=== PATIENT | female | born 1940 | race Caucasian/White ===

== ENCOUNTER 2019-12-12 17:43 | Outpatient (CLI) | payer MEDICARE, SELFPAY ==
--- NOTE | ~2019-12-12 | CT_ITS ---
EXAMINATION: CT chest w con DATE: 12/12/2019 18:27 INDICATION: Pneumonia TECHNIQUE: Computed tomography (CT) of the chest was performed with 75 cc Omnipaque 350 intravenous c ontrast. The dose-length product was 209.09 mGy-cm. Automated exposure control and iterative reconstr uction technique were employed. COMPARISON: Chest x-ray dated 11/21/2019 FINDINGS: Heart size is normal. No significant pleural or pericardial effusion. Moderate size hiatal hernia. No thoracic lymphadenopathy. No evidence for aortic aneurysm or dissection. There is dependen t atelectasis. There is an accessory azygos lobe, normal variant. There is a subsolid 8 mm right lowe r lobe nodule. No endobronchial lesions. No pneumothorax. IMPRESSION: 1. Bibasilar dependent atelectasis. 2: 8 mm some solid nodule right lower lobe, likely benign. Recommend follow-up low dose CT in 6 ni hs to assess for stability. 3: Moderate sized hiatal hernia. Reviewed, dictated and finalized at location A. RAL SUPPLY ASSISTANT IMPRESSION: 1. Bibasilar dependent atelectasis. 2: 8 mm some solid nodule right lower lobe, likely benign. Recommend follow-up low dose CT in 6 months to assess for stability. 3: Moderate sized hiatal hernia.
[2019-12-12 18:23] LABS: Blood Urea Nitrogen 20 mg/dL (8-26); Estimated Glomerular Filt Rate 48
== END 2019-12-12 17:44 | disposition home or self-care (01) ==
PROVIDERS: PCP Family Medicine; Visit Provider Nurse Practitioner Family
DX: R06.09 Other forms of dyspnea (principal); J18.9 Pneumonia, unspecified organism; J98.11 Atelectasis; K44.9 Diaphragmatic hernia without obstruction or gangrene
CPT/HCPCS: 71260; Q9967

== ENCOUNTER 2019-12-27 07:44 | Outpatient (CLI) | payer MEDICARE, SELFPAY ==
--- NOTE | 2019-12-27 08:06 | ECHO_ITS ---
Patient Info Name: Debi Roberts Age: 79 years : 1940 Gender: Female Ht: 65 in Wt: 210 lbs BSA: 2.13 m2 HR: 85 bpm BP: 153 / 88 mmHg Technical Quality: Good Exam Date: 12/27/2019 8:11 AM Exam Location: [facility] Pulmonary Patient Status: Outpatient Admit Date: 12/27/2019 Staff Ordering Physician: Raffaele Lang DO Pig Machine Crane Operator: [place] Steward RDCS Attending Provider: Raffaele Lang DO Referring Physician: Rickey LAINEZ; Exam Type: CA echo doppler color flow Study Info Indications R07.89 - Other chest pain Complete two-dimensional, color flow and Doppler transthoracic echocardiogram is performed. Summary 1. Left ventricular chamber dimension is normal. 2. Left ventricular systolic function is normal, estimated at 55-60%. 3. The left ventricular diastolic function is grade I diastolic dysfunction. 4. E/e' 23 is significantly elevated. 5. Left atrial chamber dimension is mildly enlarged. 6. There is mild aortic valve sclerosis. 7. There is trace tricuspid valve regurgitation. 8. No pulmonary hypertension, estimated pulmonary arterial systolic pressure is 26 mmHg. 9. There is trace pulmonic regurgitation. 10. The aortic root size at the sinus of Valsalva is borderline dilated at 4.0 cm. Left Ventricle E/e' 23 is significantly elevated. Left ventricular chamber dimension is normal. Left ventricular systolic function is normal, estimated at 55-60%. The left ventricular diastolic function is grade I diastolic dysfunction. Right Ventricle Right ventricular chamber dimension is normal. Right ventricular systolic function is normal. Left Atria Left atrial chamber dimension is mildly enlarged. Right Atria Right atrial chamber dimension is normal. Aortic Valve The aortic valve is trileaflet. There is mild aortic valve sclerosis. There is no aortic valve stenosis. There is no aortic valve regurgitation. Pulmonic Valve There is trace pulmonic regurgitation. Mitral Valve There is no mitral valve stenosis. There is no mitral valve regurgitation. Tricuspid Valve There is trace tricuspid valve regurgitation. No pulmonary hypertension, estimated pulmonary arterial systolic pressure is 26 mmHg. Pericardium/Pleural There is no pericardial effusion. Inferior Vena Cava Normal inferior vena cava with >50% collapse upon inspiration consistent with normal right atrial pressure, 5 mmHg. Aorta The aortic root size at the sinus of Valsalva is borderline dilated at 4.0 cm. Left Ventricular Outflow Tract Name Value Normal LVOT 2D LVOT Diameter 1.9 cm LVOT Doppler LVOT Peak Velocity 102 cm/s LVOT Peak Gradient 4 mmHg LVOT Mean Gradient 2 mmHg LVOT VTI 22 cm LVOT VTI/AV VTI Ratio 0.7 LVOT Stroke Volume 63 ml LVOT CO 10.7 l/min LVOT CI 5.0 l/min/m2 Pulmonic Valve Na
--- NOTE | 2019-12-27 08:06 | EST_ITS ---
Patient Info Name: Debi Roberts Age: 79 years : 1940 Gender: Female Ht: 65 in Wt: 210 lbs BSA: 2.13 m2 Exam Date: 12/27/2019 9:25 AM Exam Location: [facility] Stress Patient Status: Outpatient Admit Date: 12/27/2019 Staff Ordering Physician: Raffaele Lang DO Attending Provider: Raffaele Lang DO Exercise Technologist: Marcial Wu RDCS, RT Exercise Physician: Raffaele Lang DO Exam Type: CA stress test treadmill Study Info A treadmill exercise stress test was performed. Summary 1. 1. Negative Darci exercise stress test for ischemic ST changes by ECG criteria. 2. 2. Poor functional capacity, achieving 4 METs of workload. 3. 3. Baseline hypertension. 4. 4. Rapid HR response to exercise. 5. 5. Appropriate HR recovery at 1 minute post exercise. 6. 6. No imaging with stress testing. 7. 7. Patient informed of the above results. Protocol: Darci Stress ECG Details Stage: REST Duration (min): 1 min : 53 sec Speed (mph): 0.0 Grade (%): 0 HR (bpm): 76 SBP (mmHg): 144 DBP (mmHg): 95 METS: --- Stage: REST Duration (min): 4 min : 29 sec Speed (mph): 0.0 Grade (%): 0 HR (bpm): 77 SBP (mmHg): 144 DBP (mmHg): 95 METS: --- Stage: STAGE 1 Duration (min): 1 min : 0 sec Speed (mph): 1.7 Grade (%): 10 HR (bpm): 118 SBP (mmHg): 144 DBP (mmHg): 95 METS: --- Stage: STAGE 1 Duration (min): 2 min : 0 sec Speed (mph): 1.7 Grade (%): 10 HR (bpm): 144 SBP (mmHg): 144 DBP (mmHg): 95 METS: --- Stage: STAGE 1 Duration (min): 2 min : 0 sec Speed (mph): 1.7 Grade (%): 10 HR (bpm): 145 SBP (mmHg): 144 DBP (mmHg): 95 METS: --- Stage: RECOVERY Duration (min): 0 min : 59 sec Speed (mph): 0.0 Grade (%): 0 HR (bpm): 121 SBP (mmHg): 185 DBP (mmHg): 106 METS: --- Stage: RECOVERY Duration (min): 1 min : 59 sec Speed (mph): 0.0 Grade (%): 0 HR (bpm): 97 SBP (mmHg): 185 DBP (mmHg): 106 METS: --- Stage: RECOVERY Duration (min): 2 min : 59 sec Speed (mph): 0.0 Grade (%): 0 HR (bpm): 87 SBP (mmHg): 197 DBP (mmHg): 107 METS: --- Stage: RECOVERY Duration (min): 3 min : 59 sec Speed (mph): 0.0 Grade (%): 0 HR (bpm): 80 SBP (mmHg): 197 DBP (mmHg): 107 METS: --- Stage: RECOVERY Duration (min): 4 min : 59 sec Speed (mph): 0.0 Grade (%): 0 HR (bpm): 84 SBP (mmHg): 169 DBP (mmHg): 99 METS: --- Stage: RECOVERY Duration (min): 5 min : 59 sec Speed (mph): 0.0 Grade (%): 0 HR (bpm): --- SBP (mmHg): 169 DBP (mmHg): 99 METS: --- Stage: RECOVERY Duration (min): 6 min : 59 sec Speed (mph): 0.0 Grade (%): 0 HR (bpm): --- SBP (mmHg): 169 DBP (mmHg): 99 METS: --- Stage: RECOVERY Duration (min): 7 min : 2 sec Speed (mph): 0.0 Grade (%
== END 2019-12-27 07:45 | disposition home or self-care (01) ==
PROVIDERS: PCP Family Medicine; Visit Provider Internal Medicine Cardiovascular Disease
DX: R07.9 Chest pain, unspecified (principal); R06.09 Other forms of dyspnea; I51.7 Cardiomegaly; I35.8 Other nonrheumatic aortic valve disorders
CPT/HCPCS: 93017; 93306

== ENCOUNTER → 2021-05-14 13:07 | Outpatient (CLI) | payer MEDICARE, SELFPAY ==
--- NOTE | ~2021-05-14 | CT_ITS ---
EXAMINATION: CT diagnostic chest wo con DATE: 05/14/2021 13:42 INDICATION: Lung nodule TECHNIQUE: Computed tomography (CT) of the chest was performed without intravenous contrast. The dose -length product (DLP) was 95.45 mGy-cm. Automated exposure control and iterative reconstruction techn ique were employed. COMPARISON: 12/12/2019 FINDINGS: The previously described right lower lobe nodule is slightly decreased in size since prior examination. There are chronic groundglass opacities in the posterior lateral aspect of the right upp er lobe which demonstrates slight increase in size since the comparison examination. No definite valentina d component is identified. There is no pleural effusion or pneumothorax. No pathologically enlarged t horacic lymph nodes are identified. The heart size is normal. There is moderate thoracic spondylosis. IMPRESSION: 1. Groundglass opacities of the right upper lobe with overall slight increase in size but decrease in size of the previously described nodular component likely reflecting chronic infection/inflammation versus scarring. Follow-up low-dose chest CT in one year is recommended. Reviewed, dictated and finalized at location B. IMPRESSION: 1. Groundglass opacities of the right upper lobe with overall slight increase i n size but decrease in size of the previously described nodular component likel y reflecting chronic infection/inflammation versus scarring. Follow-up low-dose chest CT in one year is recommended.
--- NOTE | ~2021-05-14 | DEXA_ITS ---
Bone Density Report Name: Debi Roberts Age: 81 Sex: Female Ethnicity: White Date of : 1940 Indication: postmenopausal osteoporosis; height loss; hysterectomy; Referring Provider: Tameka Bee Study: Bone densitometry was performed. Exam Date: May 14, 2021 Accession number: [id number] Bone Density: Region BMD T-score Z-score Classification AP Spine (L1-L4) 1.125 0.7 3.4 Normal Femoral Neck (Left) 0.572 -2.5 -0.2 Osteoporosis Total Hip (Left) 0.657 -2.3 -0.3 Osteopenia Femoral Neck (Right) 0.605 -2.2 0.1 Osteopenia Total Hip (Right) 0.670 -2.2 -0.2 Osteopenia Total Hip Mean 0.664 -2.3 -0.3 Osteopenia World Health Organization criteria for BMD impression classify patients as: Normal (T-score at or above -1.0), Osteopenia (T-score between -1.0 and -2.5), or Osteoporosis (T-score at or below -2.5). 10-year Fracture Risk: FRAX not reported because: Some T-score for Spine Total or Hip Total or Femoral Neck at or below -2.5 Previous Exams: Region Exam Age BMD T-score BMD Change BMD Change Date g/cm2 vs Baseline vs Previous AP Spine(L1-L4) 05/14/2021 81 1.125 0.7 0.070 0.070 07/12/2017 77 1.055 0.1 Total Hip(Left) 05/14/2021 81 0.657 -2.3 -0.002 -0.002 07/12/2017 77 0.659 -2.3 Total Hip(Right) 05/14/2021 81 0.670 -2.2 0.031 0.031 07/12/2017 77 0.639 -2.5 *Denotes significance at 95% confidence level, LSC for AP Spine = 0.022 g/cm2, LSC for Total Hip = 0.027 g/cm2 Clinical Information Provided by Patient: Has the following medical conditions: Hysterectomy, asthma in the past Patient maximum height was 65 Menopause Age: 52 Does not regularly consume dairy products Drinks caffeinated beverages Onset of menses at age 14 Number of children 4 Impression: The patient has osteoporosis, based on the Left Femoral Neck T-score. No significant bone loss was observed. Discussion: INCREASED RISK OF FRACTURE. BONE DENSITY IS UNDESIRABLY LOW AT ONE OR MORE SKELETAL SITES, CONSISTENT WITH POSTMENOPAUSAL OSTEOPOROSIS. This patient's lowest T-score meets the World Health Organization's (WHO) criteria for osteoporosis at one or more sites (T-score -2.5 or below). In untreated patients, the risk of osteoporotic fracture increases approximately two-fold for each 1.0 SD decrease in T-score. Low bone density is not the only risk factor for fracture; also consider factors such
== END ==
PROVIDERS: PCP Family Medicine; Visit Provider Physician Assistant
DX: R91.1 Solitary pulmonary nodule (principal); Z78.0 Asymptomatic menopausal state; M81.0 Age-related osteoporosis without current pathological fracture; M85.851 Other specified disorders of bone density and structure, right thigh; M85.852 Other specified disorders of bone density and structure, left thigh
CPT/HCPCS: 71250; 77080

== ENCOUNTER → 2022-05-27 11:32 | Outpatient (CLI) | payer MEDICARE, SELFPAY ==
--- NOTE | ~2022-05-27 | CT_ITS ---
EXAMINATION: CT diagnostic chest wo con DATE: 05/27/2022 11:47 INDICATION: Solitary pulmonary nodule TECHNIQUE: Computed tomography (CT) of the chest was performed without intravenous contrast. Automate d exposure control and iterative reconstruction technique were employed. Exam dose: 94.80 mGy-cm tot al exam DLP. COMPARISON: 05/14/2021 CT chest 12/12/2019 CT chest FINDINGS: Decreased size of superior segment right lower lobe nodular density since 12/12/2019, consis tent with benign process. There is resolution of tree-in-bud infiltrate in this area since 05/14/2021. Minimal residual density is likely postinfectious residue/scarring. Azygos lobe, normal variant. No pulmonary infiltrate or consolidation or pulmonary mass lesion is not ed otherwise. There is mild atelectasis at the lung bases. Right fat-containing foramen of Bochdalek hernia. Mild thoracic aortic aneurysm, the aortic arch measuring up to 3.2 cm diameter. No hilar or mediastin al mass lesion or lymphadenopathy is evident. Mild cardiomegaly. No pericardial or pleural effusion. [id number]-[id number] size hiatal hernia. 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 Diffuse idiopathic skeletal hyperostosis. No s uspicious osteolytic or osteoblastic lesions are noted. IMPRESSION: Minimal residual likely postinfectious residue in the superior segment of the right lowe r lobe, improved since 05/14/2021 and 12/12/2019, consistent with benign process Mild atelectasis at the lung bases Cardiomegaly Mild to moderate hiatal hernia Fat-containing right foramen of Bochdalek hernia Mild thoracic aortic aneurysm Reviewed, dictated and finalized at Location A. Reviewed, dictated and finalized at location A. IMPRESSION: Minimal residual likely postinfectious residue in the superior seg ment of the right lower lobe, improved since 05/14/2021 and 12/12/2019, consisten t with benign process Mild atelectasis at the lung bases Cardiomegaly Mild to moderate hiatal hernia Fat-containing right foramen of Bochdalek hernia Mild thoracic aortic aneurysm
== END ==
PROVIDERS: PCP Family Medicine; Visit Provider Family Medicine
DX: R91.1 Solitary pulmonary nodule (principal); I71.2 Thoracic aortic aneurysm, without rupture; K44.9 Diaphragmatic hernia without obstruction or gangrene; I51.7 Cardiomegaly
CPT/HCPCS: 71250

== ENCOUNTER 2025-08-21 10:10 | Outpatient (CLI) | payer MEDICARE, SELFPAY ==
--- NOTE | ~2025-08-21 | DEXA_ITS ---
Bone Density Report Name: LATOSHA SEYMOUR Age: 85 Sex: Female Ethnicity: White Date of : 1940 Indication: osteopenia; height loss; asthma or emphysema; Referring Provider: MEREDITH WARNER Study: Bone densitometry was performed. Exam Date: August 21, 2025 Accession number: [id number] Bone Density: Region BMD T-score Z-score Classification AP Spine(L1, L2, L3) 1.068 0.5 3.2 Normal Femoral Neck (Left) 0.651 -1.8 0.7 Osteopenia Total Hip (Left) 0.667 -2.3 0.0 Osteopenia Femoral Neck (Right) 0.652 -1.8 0.7 Osteopenia Total Hip (Right) 0.650 -2.4 -0.1 Osteopenia Total Hip Mean 0.659 -2.4 -0.1 Osteopenia World Health Organization criteria for BMD impression classify patients as: Normal (T-score at or above -1.0), Osteopenia (T-score between -1.0 and -2.5), or Osteoporosis (T-score at or below -2.5). 10-year Fracture Risk(1): Major Osteoporotic Fracture 13% Hip Fracture 3.5% Reported Risk Factors: [place] (), Neck BMD=0.651, BMI=37.7 (1) FRAX(R) Version 3.08. Fracture probability calculated for an untreated patient. Fracture probability may be lower if the patient has received treatment. Previous Exams: -- Region Exam Age BMD T-score BMD Change BMD Change Date g/cm2 vs Baseline vs Previous -- AP Spine (L1-L3) 08/21/2025 85 1.068 0.5 8.2%* -0.6%# 05/14/2021 81 1.075 0.5 8.9%# 8.9%# 07/12/2017 77 0.987 -0.3 Total Hip(Left) 08/21/2025 85 0.667 -2.3 1.3% 1.6%# 05/14/2021 81 0.657 -2.3 -0.3%# -0.3%# 07/12/2017 77 0.659 -2.3 Total Hip(Right) 08/21/2025 85 0.650 -2.4 1.8% -3.0%# 05/14/2021 81 0.670 -2.2 4.9%# 4.9%# 07/12/2017 77 0.639 -2.5 -- *Denotes significance at 95% confidence level, LSC for AP Spine = 0.022 g/cm2, LSC for Total Hip = 0.027 g/cm2 Rate of change results reflect vertebral levels common to all scans # Denotes dissimilar scan types or analysis methods Clinical Information Provided by Patient: Has used the following medications: Calcium Has the following medical conditions: Asthma or Emphysema Patient maximum height was 65 Menopause Age: 52 Does not regularly consume dairy products Drinks caffeinated beverages Onset of menses at age 16 Number of children 4 Impression: The patient has low bone mass, based on the Right Total Hip T-score. The patient has an estimated ten-year risk of hip fracture of 3.5% and an estimated ten-year risk of major fracture of 13%, based on the WHO FRAX algorithm. Unable to evaluate interval change due to the use of different scan modes. Discussion: BONE DENSITY IS LOW AT ONE OR MORE SKELETAL SITES. THE PATIENT'S BMD AND CLINICAL RISK FACTORS CONTRIBUTE TO THIS PATIENT'S INCREASED RISK OF FRACTURE. This patient's lowest T-score is low at one or more skeletal sites. It meets the World Health Organization's (WHO) criteria for ?low bone mass? (T-score between -1.0 and -2.5). The patient's 10-year risk of hip fracture as calculated by FRAX exceeds the threshold where pharmacological therapy is recommended by the National Osteoporosis Foundation (NOF). However, all treatment decisions require clinical judgment and consideration of individual patient factors, including patient preferences, comorbidities, previous drug use, risk factors not captured in the FRAX model (e.g., frailty, falls, vitamin D deficiency, increased bone turnover, interval significant decline in bone density) and possible under or overestimation of fracture risk by FRAX. The patient should follow a healthful lifestyle (good nutrition with adequate calcium and vitamin D, and appropriate weight-bearing exercise). Follow-Up: Consider a repeat BMD and Vertebral Fracture Assessment (VFA) exam in 2 years or sooner if medically necessary, to reassess this patient's status. Reported by: ROBINSON on 08/21/2025 10:36:00 AM. Reviewed, dictated and finalized at location A.
== END 2025-08-21 10:11 | disposition home or self-care (01) ==
PROVIDERS: PCP Family Medicine; Visit Provider Student in an Organized Health Care Education/Training Program
DX: Z78.0 Asymptomatic menopausal state (principal); M85.852 Other specified disorders of bone density and structure, left thigh; M85.851 Other specified disorders of bone density and structure, right thigh
CPT/HCPCS: 77080